=== PATIENT | male | born 1980 | race Caucasian/White ===

== ENCOUNTER 2021-11-06 18:26 | Emergency (ER) | payer OTHER, SELFPAY ==
--- NOTE | ~2021-11-06 | XR_ITS ---
EXAMINATION: XR abdomen/kub 1V DATE: 11/06/2021 19:27 INDICATION: Kidney stone. TECHNIQUE: A supine view of the abdomen on 2 radiographs was obtained. COMPARISON: CT abdomen and pelvis 11/06/2021 FINDINGS: There are no dilated loops of bowel. There are phleboliths in the pelvis. There is a 5 mm s tone at left ureterovesicular junction. There are surgical clips in the scrotum. IMPRESSION: 1. 5 mm stone at left ureterovesicular junction. Reviewed, dictated and finalized at location A.
--- NOTE | ~2021-11-06 | CT_ITS ---
EXAMINATION: CT abdomen pelvis wo con DATE: 11/06/2021 18:55 INDICATION: Left flank pain. TECHNIQUE: Computed tomography (CT) of the abdomen and pelvis was performed without intravenous contr ast. Automated exposure control and iterative reconstruction technique were employed. The dose-length product was 1302.27 mGy-cm. COMPARISON: None. FINDINGS: The visualized portions of the lung bases demonstrate mild atelectasis. No pleural effusion . The heart size is normal. There are coronary artery calcifications. No pericardial effusion. There is diffuse hepatic steatosis. The gallbladder, spleen, pancreas, and adrenal glands are normal. There are 2 mm and 1 mm stones in right kidney. There is mild left hydronephrosis and hydroureter. There i s a 5 mm stone at left ureterovesicular junction. There are no dilated loops of bowel. The appendix i s normal. There is an umbilical hernia containing fat. There are no pathologically enlarged lymph nod es. There is no free intraperitoneal fluid. There is ankylosis of the sacroiliac joints. There is mod erate lumbar spondylosis. IMPRESSION: 1. 5 mm stone at left ureterovesicular junction with mild left hydronephrosis and hydroureter. 2. Small nonobstructing right kidney stones. Reviewed, dictated and finalized at location A. IMPRESSION: 1. 5 mm stone at left ureterovesicular junction with mild left hydronephrosis a nd hydroureter. 2. Small nonobstructing right kidney stones.
[2021-11-06 18:28] VITALS: BP 174/85; PULSE 69; RESP 18; TEMP 36.6; O2SAT 98
[2021-11-06 18:40] LABS: Basophils Percent Auto 0.5 % (0.2-1.2); Eosinophils Absolute Auto 0.1 K/mm3 (0-0.3); Eosinophils Percent Auto 1.5 % (0-4.4); Hematocrit 49.8 % (42.0-52.0); Hemoglobin 17.4 g/dL (14.0-18.0); Immature Granulocyte Absolute 0.05 K/mm3 (0.00-0.031); Immature Granulocyte Percent A 0.7 % (0-0.5); Lymphocytes Absolute Auto 1.89 K/mm3 (0.9-3.2); Lymphocytes Percent Auto 25.4 % (18.3-44.2); Mean Corpuscular HGB Conc 34.9 g/dl (32-36); Mean Corpuscular Hemoglobin 31.9 pg (26-34); Mean Corpuscular Volume 91.2 fl (80-100); Mean Platelet Volume 8.7 fl (7.4-10.4); Monocytes Absolute Auto 0.5 K/mm3 (0.1-0.6); Monocytes Percent Auto 7.1 % (2.6-8.5); Neutrophils Absolute Auto 4.8 K/mm3 (1.3-6.7); Neutrophils Percent Auto 64.8 % (45.5-73.1); Platelet Count Result 257 k/mm3 (150-375); Red Blood Count 5.46 M/mm3 (4.6-6.20); Red Cell Distribution Width 11.9 % (11.5-14.5); White Blood Count 7.4 K/mm3 (4.5-10.0)
--- NOTE | 2021-11-06 18:44 | ED.GENADULT ---
HPI - General Adult General Chief complaint: Nausea/Vomiting/Diarrhea Stated complaint: back pain Time Seen by Provider: 11/06/21 18:41 Source: RN notes reviewed History of Present Illness HPI narrative: Patient presents emergency department for left flank pain. Patient has pain began suddenly approximately 1 hour ago the pain is located left leg radiates around the left side of the abdomen described as sharp and stabbing. Associate with nausea. Denies any fevers or chills chest pain shortness of breath diarrhea or any other symptoms. States he not taking medication for the symptoms at home. Denies any previous history of kidney stones Related Data Allergies Allergy/AdvReac Type Severity Reaction Status Date / Time No Known Allergies Allergy Verified 11/06/21 19:15 Review of Systems Review of Systems: Gen.: Denies fevers or chills ENT: Denies congestion Respiratory: Denies shortness of breath or cough CV: Denies chest pain or palpitations GI: See HPI denies burning, urgency, frequency or hematuria Musculoskeletal: Denies back pain or muscle pain Neuro: Denies numbness, tingling, weakness or focal weakness Skin: Denies rash Except as documented, all other systems reviewed and negative [facility] Past Medical History Medical History (Updated 11/06/21 @ 20:41 by Abdulaziz Duarte DO) Patient denies significant medical history Social History Social History (Updated 11/06/21 @ 18:45 by Abdulaziz Duarte DO) Smoking status: Never smoker Exam Narrative: APPEARANCE: No acute distress, nontoxic, resting in bed HEENT: Normocephalic, atraumatic, OMM RESPIRATORY: No respiratory distress, clear to auscultation bilaterally with no rhonchi wheezing or rales CARDIOVASCULAR: RRR s murmur ABDOMINAL: Soft nondistended tender palpation left lower quadrant no tenderness left upper quadrant, right upper quadrant right lower quadrant no rebound or guarding, left flank tenderness MUSCULOSKELETAl: Moves all extremities. No clubbing, cyanosis or edema. NEURO: Awake and alert. Following commands, speech normal, no focal deficits SKIN:: Warm, dry. Normal Color PSYCHIATRIC: Normal affect/mood Course Course Emergency Course: Patient states he is feeling much better at this time Discussed with patient results of workup and diagnosis. Discussed need for follow-up with primary care, proper use of medication, and reasons to return to the emergency department. Patient understands and agrees to current treatment plan Vital Signs Vital signs: Vital Signs Temperature 97.8 F 11/06/21 18:28 Pulse Rate 69 11/06/21 18:28 Respiratory Rate 18 11/06/21 18:28 Blood Pressure 174/85 H 11/06/21 18:28 Pulse Oximetry 98 11/06/21 18:28 Temperature 97.8 F 11/06/21 18:28 Pulse Rate 64 11/06/21 19:39 Respiratory Rate 18 11/06/21 19:39 Blood Pressure 149/84 H 11/06/21 19:39 Pulse Oximetry 98 11/06/21 19:39 Medical Decision Making MDM Narrative Medical decision making narrative: Patient's abdomen is soft without significant pain or signs of surgical abdomen on serial exams. Lab and x-ray evaluations are reviewed and patient is felt to be a reasonable candidate for outpatient management. Patient was instructed as to limitations of x-ray and laboratory evaluation and encouraged to return to ED or primary physician for repeat exam in 12 hours if continued or worsening pain Vital Signs Vital Signs: Vital Signs Temperature 97.8 F 11/06/21 18:28 Pulse Rate 69 11/06/21 18:28 Respiratory Rate 18 11/06/21 18:28 Blood Pressure 174/85 H 11/06/21 18:28 Pulse Oximetry 98 11/06/21 18:28 Temperature 97.8 F 11/06/21 18:28 Pulse Rate 64 11/06/21 19:39 Respiratory Rate 18 11/06/21 19:39 Blood Pressure 149/84 H 11/06/21 19:39 Pulse Oximetry 98 11/06/21 19:39 Lab Data Result diagrams: 11/06/21 18:33 11/06/21 18:33 Labs: Lab Results 11/06/21 11/06/21 11/06/21 Range/Un
[2021-11-06 18:51] LABS: Alanine Aminotransferase 80 U/L (6-50); Albumin Level 4.7 g/dL (3.5-5.1); Alkaline Phosphatase 75 U/L (38-126); Anion Gap 8 mmol/L (8-16); Aspartate Amino Transferase 52 U/L (17-59); Bilirubin,Total 0.6 mg/dL (0.2-1.3); Blood Urea Nitrogen 17 mg/dL (9-20); Calcium 9.1 mg/dL (8.4-10.2); Carbon Dioxide 22 mmol/L (22-30); Chloride 109 mmol/L (98-107); Estimated CRCL calculation 102 ml/min; Estimated Glomerular Filt Rate > 60; Glucose 134 mg/dL (65-110); Lipase 127 U/L (23-300); Potassium 4.3 mmol/L (3.4-5.0); Sodium 139 mmol/L (137-145)
--- NOTE | 2021-11-06 18:54 | PC.NURSE ---
pt in CT at this time.
[2021-11-06] MEDS: TAMSULOSIN HCL 0.4 MG CAPSULE PO (19:21)
[2021-11-06] MEDS: ONDANSETRON INJ 4 MG/2 ML VIAL IV PUSH (19:21)
[2021-11-06] MEDS: SODIUM CHLORIDE 0.9% IV 1,000 ML 999 ML IV CONT (19:21)
[2021-11-06] MEDS: KETOROLAC 30 MG/ML VIAL (*BKC) IV PUSH (19:21)
[2021-11-06 19:39] VITALS: BP 149/84; PULSE 64; RESP 18; O2SAT 98
[2021-11-06 19:50] LABS: Appearance Urine Clear (Clear); Bilirubin Urine 1+ (Negative); Blood Urine Negative (Negative); Color Urine Yellow (Yellow); Glucose Urine UA Negative (Negative); Ketones Urine Trace mg/dL (Negative); Leukocyte Esterase Ur Negative LEU/UL (Negative); Nitrate Urine Negative (Negative); Protein Urine 1+ mg/dL (Negative); Specific Grav Ur >= 1.030 (1.001-1.035)
[2021-11-06 20:00] LABS: Mucus Urine Moderate /lpf; WBC Urine 0-3 /hpf
[2021-11-06 20:02] LABS: Add Urine Microscopic? YES
[2021-11-06] MEDS: MORPHINE SULFATE (*CRX) 4 MG/ML INJ IV PUSH (20:06)
[2021-11-06 20:40] VITALS: BP 145/78; PULSE 68; RESP 18; O2SAT 100
[2021-11-06] MEDS: PROMETHAZINE HCL 25 MG/ML AMPUL 12.5 MG IV PUSH (21:01)
[2021-11-06] MEDS: MORPHINE SULFATE (*CRX) 2 MG/ML INJ IV PUSH (21:18)
[2021-11-06 22:15] VITALS: BP 143/74; PULSE 85; RESP 16; O2SAT 99
== END 2021-11-06 21:55 | disposition home or self-care (01) ==
PROVIDERS: Emergency Medicine; Emergency Provider Emergency Medicine
DX: N13.2 Hydronephrosis with renal and ureteral calculous obstruction (principal)
CPT/HCPCS: 36415; 74018; 74176; 80053; 81001; 83690; 85025; 96361; 96374; 96375; 96376; 99284; A9270; J1885; J2270; J2405; J2550; J7030